=== PATIENT | female | born 1970 | race Two or more races ===

== ENCOUNTER 2020-06-08 06:00 | Day surgery (SDC) | payer OTHER | END 2020-06-08 15:20 | disposition home or self-care (01) | LOC: CIR.AMB 06:00 | PROVIDERS: ATTEND Obstetrics & Gynecology | DX: N95.0 Postmenopausal bleeding (principal); N72 Inflammatory disease of cervix uteri; Z20.828 Contact with and (suspected) exposure to other viral communicable diseases ==